=== PATIENT | female | born 1995 | race Caucasian/White ===

== ENCOUNTER 2017-10-13 21:10 | Emergency (ER) | payer OTHER ==
[~2017-10-13] VITALS: Ht 172.7 cm; Wt 81.2 kg
[2017-10-13 21:25] VITALS: TEMP 36.8; Ht 172.7 cm; Wt 81.2 kg
[2017-10-13] MEDS ORDERED: SODIUM CHLORIDE 0.9% 1000ML 1,000 ML IV ONE (22:15)
[2017-10-13 22:30] LABS: BASO % 0.3 %; BASO ABS # 0.03 K/uL (0-0.2); EOS % 1.8 %; EOS ABS # 0.17 K/uL (0-0.5); HEMATOCRIT 39.4 % (37-47); HEMOGLOBIN 13.2 g/dL (12.0-16.0); IG# 0.01 K/uL (0.00-0.02); LYMPH % 36.8 %; MEAN CELL VOLUME 86.2 fL (80-100); MEAN CORPUSCULAR HEMOGLOBIN 28.9 pg (25-34); MEAN CORPUSCULAR HGB CONC 33.5 g/dl (32-36); MEAN PLATELET VOLUME 10.1 fL (7.4-10.4); MONO ABS # 0.92 K/uL (0.11-0.59); NEUT ABS # 4.71 K/uL (1.4-6.5); PLATELET COUNT 286 K/uL (130-400); RED CELL DISTRIBUTION WIDTH CV 13.3 % (11.5-14.5); RED CELL DISTRIBUTION WIDTH SD 42.3 fL (36.4-46.3); WHITE BLOOD COUNT 9.24 K/uL (4.8-10.8)
[2017-10-13 22:47] LABS: ALBUMIN 4.1 gm/dl (3.4-5.0); CALCIUM 8.7 mg/dl (8.5-10.1); CREATININE 0.8 mg/dl (0.60-1.20); POTASSIUM 3.6 mmol/L (3.5-5.1)
[2017-10-13 22:50] LABS: TOTAL PROTEIN 7.9 gm/dl (6.4-8.2)
[2017-10-14 01:30] VITALS: BP 126/82
[2017-10-14 02:11] VITALS: PULSE 79; O2SAT 100
--- NOTE | 2017-10-14 03:10 | EMERGENCY ROOM VISIT NOTE ---
History First contact with patient: 21:51 Chief Complaint: VAGINAL BLEEDING Stated Complaint: NEWLY , DARK BLEEDING, CHEST PAIN History of Present Illness The patient is a 22 year old female who presents to the Emergency Room with complaints of vaginal bleeding that started today. The patient states that her last menstrual period was about 5 weeks ago. She took a home test 6 days ago that was positive. This would be her third . She had 2 uncomplicated spontaneous vaginal deliveries with her first 2 pregnancies. The patient is not having pain or cramping in the abdomen. She describes a small spots when wiping after using the bathroom initially, and now small spotting into her underwear. The patient has not had fever or chills. No significant chest pain or shortness of breath. The patient considers himself otherwise usually healthy. 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 She has not followed with [facility] yet for this . She rates her current discomfort as 0/10. Review of Systems More than 10 systems were reviewed and otherwise negative with the exception of history of present illness. Past Medical/Surgical History No chronic medical disease Family History No pertinent family history Social History Smoking Status: Never Smoker Housing Status: lives with significant other Occupation Status: employed Current/Historical Medications No Active Prescriptions or Reported Meds Physical Exam Vital Signs Date Time Temp Pulse Resp B/P (MAP) Pulse Ox O2 Delivery O2 Flow Rate FiO2 10/14/17 02:11 79 100 10/14/17 01:30 80 16 126/82 98 Room Air 10/13/17 23:41 66 18 116/81 100 Room Air 10/13/17 21:25 36.8 70 20 145/89 96 Room Air Physical Exam VITALS: Vitals are noted on the nurse's note and reviewed by myself. Vital signs stable. GENERAL: Well-developed, well-nourished, white female, who is in no acute distress and resting comfortably. Patient is cooperative with the examination. HEAD: Normocephalic atraumatic. MOUTH: Mucous membranes moist. Tonsils are not enlarged. Pharynx without erythema, blood, or exudate. Uvula midline. Airway patent. NECK: Supple without nuchal rigidity. No lymphadenopathy. No thyromegaly. Cervical spine is nontender. HEART: Regular rate and rhythm without murmurs gallops or rubs. LUNGS: Clear to auscultation bilaterally without wheezes, rales or rhonchi. No retractions or accessory muscle use. ABDOMEN: Positive normal bowel sounds x 4. Soft, nontender, without masses or organomegaly. No guarding or rebound tenderness. MUSCULOSKELETAL: No muscle atrophy, erythema, or edema noted. Full range of motion in all extremities. No tenderness to palpation. Medical Decision & Procedures ER Provider Diagnostic Interpretation: Preliminary Findings Only See Final Report For Complete Findings US OB 1st TRIMESTER: No prior. There is a tiny cystic focus within the uterus. No internal contents identified. Measures about 2.1 mm. May represent an early gestational sac. Right ovary contains a complex cyst measuring 16 mm. Query corpus luteal cyst. There is also an echogenic lesion with a hypoechoic center measuring 11 mm within the right ovary. Indeterminate. Query dermoid. Intraovarian ectopic considered unlikely and is very rare. There is some trace fluid within the endocervical canal and pelvic free fluid. Blood flow seen to the bilateral ovaries. Differential considerations include IUP too early to visualize, spontaneous and ectopic. Correlate with serial beta hCG and follow-up ultrasound, as indicated. Laboratory Results 10/13/17 22:10 Red Blood Count 4.57, Mean Corpuscular Volume 86.2, Mean Corpuscular Hemoglobin 28.9, Mean Corpuscular Hemoglobin Concent 33.5, Mean Platelet Volume 10.1, Neutrophils (%) (Auto) 51.0, Lymphocytes (%) (Auto) 36.8, Monocytes (%) (Auto) 10.0, Eosinophils (%) (Auto) 1.8, Basophils (%) (Auto) 0.3, Neutrophils # (Auto ) 4.71, Lymphocytes # (Auto) 3.40, Monocytes # (Auto) 0.92, Eosinophils # (Auto ) 0.17, Basophils # (Auto) 0.03 10/13/17 22:10 Test 10/13/17 22:10 White Blood Count 9.24 K/uL (4.8-10.8) Red Blood Count 4.57 M/uL (4.2-5.4) Hemoglobin 13.2 g/dL (12.0-16.0) Hematocrit 39.4 % (37-47) Mean Corpuscular Volume 86.2 fL (80-100) Mean Corpuscular Hemoglobin 28.9 pg (25-34) Mean Corpuscular Hemoglobin Concent 33.5 g/dl (32-36) Platelet Count 286 K/uL (130-400) Mean Platelet Volume 10.1 fL (7.4-10.4) Neutrophils (%) (Auto) 51.0 % Lymphocytes (%) (Auto) 36.8 % Monocytes (%) (Auto) 10.0 % Eosinophils (%) (Auto) 1.8 % Basophils (%) (Auto) 0.3 % Neutrophils # (Auto) 4.71 K/uL (1.4-6.5) Lymphocytes # (Auto) 3.40 K/uL (1.2-3.4) Monocytes # (Auto) 0.92 K/uL (0.11-0.59) Eosinophils # (Auto) 0.17 K/uL (0-0.5) Basophils # (Auto) 0.03 K/uL (0-0.2) RDW Standard Deviation 42.3 fL (36.4-46.3) RDW Coefficient of Variation 13.3 % (11.5-14.5) Immature Granulocyte % (Auto) 0.1 % Immature Granulocyte # (Auto) 0.01 K/uL (0.00-0.02) Anion Gap 5.0 mmol/L (3-11) Est Creatinine Clear Calc Drug Dose 122.3 ml/min Estimated GFR () 120.4 Estimated GFR (Non- 103.9 BUN/Creatinine Ratio 13.7 (10-20) Calcium Level 8.7 mg/dl (8.5-10.1) Total Bilirubin 0.6 mg/dl (0.2-1) Aspartate Amino Transf (AST/SGOT) 17 U/L (15-37) Alanine Aminotransferase (ALT/SGPT) 22 U/L (12-78) Alkaline Phosphatase 53 U/L (45-117) Total Protein 7.9 gm/dl (6.4-8.2) Albumin 4.1 gm/dl (3.4-5.0) Globulin 3.8 gm/dl (2.5-4.0) Albumin/Globulin Ratio 1.1 (0.9-2) Human Chorionic Gonadotropin, Quant 63 mIU/mL Medications Administered Medications (Trade) Dose Ordered Sig/German Route Start Time Stop Time Status Last Admin Dose Admin Sodium Chloride 1,000 ml @ 999 mls/hr Q1H1M ONCE IV 10/13/17 22:15 10/13/17 23:15 DC 10/13/17 22:15 999 MLS/HR ED Course Physical exam and history were performed. Nursing notes, EMR, and Medication List were personally reviewed. Patient appears to have small amounts of vaginal bleeding in the first trimester of . The patient does not appear toxic on examination. She does not have reports of pain, nor does she have reproducible tenderness on examination. IV access was established and labs were obtained. Patient was hydrated with normal saline. Ultrasound was ordered. The patient's blood work is as above and was reviewed. She does not have a significantly elevated white blood cell count, gross anemia, bandemia, or significant electrolyte imbalance. Her hCG quantitative is 60. Ultrasound returned as above and was reviewed. The case was discussed with my attending physician, Dr. Lopez, and with the on -call DRY[facility] FEEDER, Dr. Marvin. Clinically the patient does not appear to have an ectopic , and ultrasound findings could represent either a very early or inevitable . Dr. Marvin recommended the patient establish care with their office in 48 hours with repeat blood work. Dr. Marvin's office will attempt to contact the patient in the morning, and I will also have the patient try to schedule this appointment through their office. I spent a significant amount of time explaining results to the patient and family. She does appear comfortable with discharge home and understands that she may return to the ER with any new, worsening, or concerning symptoms. The chart was completed utilizing [employer] Speech Voice Recognition Software. Grammatical errors, random word insertions, pronoun errors, and incomplete sentences are an occasional consequence of this system due to software limitations, ambient noise, and hardware issues. Any formal questions or concerns about the content, text, or information contained within the body of this dictation should be directly addressed to the provider for clarification. . Medical Decision Differential diagnosis: Etiologies such as ectopic , dysfunction uterine bleeding, bleeding dyscrasia, trauma, infection, as well as others were entertained. Impression Primary Impression: First trimester bleeding Departure Information Dispostion Home / Self-Care Condition GOOD Prescriptions No Active Prescriptions or Reported Meds Referrals Erika Marvin M.D. Forms HOME CARE DOCUMENTATION FORM, Work Instructions, Additional Instructions: Patient was seen and evaluated today in the emergency department fo medical care. Return to work on 10/17/2017. Please excuse. IMPORTANT VISIT INFORMATION Patient Instructions My [facility] Additional Instructions You were seen and evaluated today on an emergency basis only. This is not a substitute for, or an effort to provide, complete comprehensive medical care. It is not possible to recognize and treat all injuries or illnesses in a single emergency department visit. For this reason it is recommended that you followup with [facility], Dr. Marvin's office, by telephone this morning when they open at 8am. Let the office know that we spoke with Dr. Marvin and she would like to see you on Thursday. Dr. Marvin would like you to have a repeat Beta HCG test performed Thursday morning before your appointment. The office will help facilitate this for you. Do not place anything into the vaginal vault until cleared by [facility]. You are welcome to return to the emergency department anytime with new, worsening, or concerning symptoms. Work Instructions Additional Work Instructions: Patient was seen and evaluated today in the emergency department for medical care. Return to work on 10/17/2017. Please excuse.
--- NOTE | 2017-10-14 07:14 | DIAGNOSTIC IMAGING REPORT ---
TRANSVAGINAL CLINICAL HISTORY: 22 years-old Female presenting with vag bleed in 5 or 6 week , last menstrual period 09/07/2017, , beta-hCG 63, bleeding for 6 hours, menstrual gestational age 5 weeks 1 day. TECHNIQUE: Real-time grayscale and M-mode Doppler ultrasound imaging of the pelvis was performed first using a transabdominal probe and subsequently transvaginal for better characterization. Color and spectral Doppler ultrasound imaging of the adnexa was also performed. COMPARISON: None. FINDINGS: Uterus: Possible gestational sac noted in the endometrial cavity. Endometrium is thickened likely indicating a decidual reaction. There is a 2 mm hypoechogenic/anechoic focus within the fundal endometrium, which may represent an early gestational sac. Anteverted uterus. Cervix contains trace fluid. Right adnexum: Right ovary likely contains a corpus luteum. Additionally there is a 1.1 x 1.1 x 1.0 cm heterogeneously hyperechogenic lesion within the right ovary. Right ovary measures 3.7 x 2.1 x 2.2 cm. Normal color Doppler flow and arterial and venous waveforms within the ovarian parenchyma. Left adnexum: Left ovary normal. Left ovary measures 2.6 x 2.0 x 2.0 cm. Normal color Doppler flow and arterial and venous waveforms within the ovarian parenchyma. Other: Trace free fluid, likely physiologic. IMPRESSION: 1. Possible early gestational sac within the endometrial cavity. These findings may represent an early intrauterine . Continued clinical and imaging follow-up recommended. Beta hCG trending to be considered to exclude the possibility of miscarriage. 2. Trace free fluid in the cervix, which could represent blood products. 3. No ovarian torsion. 4. Suspected 1 cm right ovarian dermoid. The report will be called/faxed according to standard departmental protocol. Electronically signed by: Jamie Celis M.D. 10/14/2017 7:13 AM Dictated Date/Time: 10/14/2017 6:51 AM
== END 2017-10-14 02:10 | disposition home or self-care (01) ==
LOC: C.EDB 21:12
DX: O20.9 Hemorrhage in early pregnancy, unspecified (principal); Z3A.00 Weeks of gestation of pregnancy not specified

== ENCOUNTER 2017-10-14 14:07 | Emergency (ER) | payer OTHER ==
[~2017-10-14] VITALS: Ht 172.7 cm; Wt 79.9 kg
[2017-10-14 14:09] VITALS: TEMP 37; Ht 172.7 cm; Wt 79.9 kg
[2017-10-14] MEDS ORDERED: SODIUM CHLORIDE 0.9% 1000ML 1,000 ML IV STA (14:29)
[2017-10-14 15:06] LABS: BASO % 0.4 %; BASO ABS # 0.03 K/uL (0-0.2); EOS % 2.8 %; EOS ABS # 0.19 K/uL (0-0.5); HEMATOCRIT 40.3 % (37-47); HEMOGLOBIN 13.7 g/dL (12.0-16.0); IG# 0.01 K/uL (0.00-0.02); LYMPH % 30.7 %; MEAN CELL VOLUME 86.1 fL (80-100); MEAN CORPUSCULAR HEMOGLOBIN 29.3 pg (25-34); MEAN PLATELET VOLUME 10.1 fL (7.4-10.4); MONO % 12.7 %; MONO ABS # 0.87 K/uL (0.11-0.59); NEUT % 53.3 %; NEUT ABS # 3.65 K/uL (1.4-6.5); PLATELET COUNT 267 K/uL (130-400); RED CELL DISTRIBUTION WIDTH CV 13.3 % (11.5-14.5); RED CELL DISTRIBUTION WIDTH SD 42.1 fL (36.4-46.3); WHITE BLOOD COUNT 6.85 K/uL (4.8-10.8)
[2017-10-14 15:23] LABS: ALBUMIN 3.7 gm/dl (3.4-5.0); CALCIUM 8.6 mg/dl (8.5-10.1); CREATININE 0.63 mg/dl (0.60-1.20); POTASSIUM 3.6 mmol/L (3.5-5.1); TOTAL PROTEIN 7.2 gm/dl (6.4-8.2)
--- NOTE | 2017-10-14 15:31 | EMERGENCY ROOM VISIT NOTE ---
History First contact with patient: 14:19 Chief Complaint: ED VAG BLEEDING Stated Complaint: EXCESSIVE BLEEDING History of Present Illness The patient is a 22 year old female who presents to the Emergency Room with complaints of heavy vaginal bleeding. The patient was seen here last night due to some vaginal spotting. She was told that she was likely having a miscarriage. She states that she left last night at approximately 1 AM and her bleeding has become increasingly heavy since then. She reports that she is now soaking through 10 pads per hour and passing large blood clots. She reports cramping pelvic pain and rates the discomfort a 4/10. She was not having pain yesterday when she was seen here. She has had 2 previous pregnancies, both of which ended with normal deliveries. She has never had a miscarriage or ectopic . Her blood type is A+. She reports feeling slightly lightheaded. Review of Systems A complete 10 point review of systems was reviewed with the patient with pertinent positives and negatives as per history of present illness. All else were negative. Past Medical/Surgical History Medical Problems: (1) No significant active problems Social History Smoking Status: Never Smoker Alcohol Use: none Marital Status: in relationship Housing Status: lives with significant other Occupation Status: employed Current/Historical Medications No Active Prescriptions or Reported Meds Physical Exam Vital Signs Date Time Temp Pulse Resp B/P (MAP) Pulse Ox O2 Delivery O2 Flow Rate FiO2 10/14/17 16:07 70 12 119/80 96 10/14/17 14:09 37.0 79 20 142/90 100 Room Air Physical Exam VITALS: Vitals are noted on the nurse's note and reviewed by myself. Vital signs stable. GENERAL: This is a 22-year-old female, in no acute distress, nondiaphoretic, well-developed well-nourished. SKIN: The skin was without rashes. MOUTH: Mucous membranes moist. HEART: Regular rate and rhythm without murmurs gallops or rubs. LUNGS: Clear to auscultation bilaterally without wheezes, rales or rhonchi. ABDOMEN: Positive bowel sounds x 4. Soft, nontender to palpation. PELVIC: Cervical os is open. There is a moderate amount of dark red blood from the os. NEURO: Patient was alert and oriented to person place and time. Medical Decision & Procedures Laboratory Results 10/14/17 14:44 Red Blood Count 4.68, Mean Corpuscular Volume 86.1, Mean Corpuscular Hemoglobin 29.3, Mean Corpuscular Hemoglobin Concent 34.0, Mean Platelet Volume 10.1, Neutrophils (%) (Auto) 53.3, Lymphocytes (%) (Auto) 30.7, Monocytes (%) (Auto) 12.7, Eosinophils (%) (Auto) 2.8, Basophils (%) (Auto) 0.4, Neutrophils # (Auto ) 3.65, Lymphocytes # (Auto) 2.10, Monocytes # (Auto) 0.87, Eosinophils # (Auto ) 0.19, Basophils # (Auto) 0.03 10/14/17 14:44 Test 10/14/17 14:44 White Blood Count 6.85 K/uL (4.8-10.8) Red Blood Count 4.68 M/uL (4.2-5.4) Hemoglobin 13.7 g/dL (12.0-16.0) Hematocrit 40.3 % (37-47) Mean Corpuscular Volume 86.1 fL (80-100) Mean Corpuscular Hemoglobin 29.3 pg (25-34) Mean Corpuscular Hemoglobin Concent 34.0 g/dl (32-36) Platelet Count 267 K/uL (130-400) Mean Platelet Volume 10.1 fL (7.4-10.4) Neutrophils (%) (Auto) 53.3 % Lymphocytes (%) (Auto) 30.7 % Monocytes (%) (Auto) 12.7 % Eosinophils (%) (Auto) 2.8 % Basophils (%) (Auto) 0.4 % Neutrophils # (Auto) 3.65 K/uL (1.4-6.5) Lymphocytes # (Auto) 2.10 K/uL (1.2-3.4) Monocytes # (Auto) 0.87 K/uL (0.11-0.59) Eosinophils # (Auto) 0.19 K/uL (0-0.5) Basophils # (Auto) 0.03 K/uL (0-0.2) RDW Standard Deviation 42.1 fL (36.4-46.3) RDW Coefficient of Variation 13.3 % (11.5-14.5) Immature Granulocyte % (Auto) 0.1 % Immature Granulocyte # (Auto) 0.01 K/uL (0.00-0.02) Anion Gap 6.0 mmol/L (3-11) Est Creatinine Clear Calc Drug Dose 154.1 ml/min Estimated GFR () 146.5 Estimated GFR (Non- 126.4 BUN/Creatinine Ratio 12.3 (10-20) Calcium Level 8.6 mg/dl (8.5-10.1) Total Bilirubin 1.4 mg/dl (0.2-1) Aspartate Amino Transf (AST/SGOT) 16 U/L (15-37) Alanine Aminotransferase (ALT/SGPT) 20 U/L (12-78) Alkaline Phosphatase 53 U/L (45-117) Total Protein 7.2 gm/dl (6.4-8.2) Albumin 3.7 gm/dl (3.4-5.0) Globulin 3.5 gm/dl (2.5-4.0) Albumin/Globulin Ratio 1.1 (0.9-2) Human Chorionic Gonadotropin, Quant 45 mIU/mL Medications Administered Medications (Trade) Dose Ordered Sig/German Route Start Time Stop Time Status Last Admin Dose Admin Sodium Chloride 1,000 ml @ 999 mls/hr Q1H1M STAT IV 10/14/17 14:29 10/14/17 15:29 DC 10/14/17 14:55 999 MLS/HR Medical Decision Differential diagnosis includes spontaneous , threatened , subchorionic hematoma, ectopic , implantation bleeding, placenta previa , placental abruption, malignancy/mass, bleeding disorder, among others. The patient is a 22-year-old female who presents today complaining of increasing vaginal bleeding. Patient was seen here last night and had an ultrasound at that time which did show a small intrauterine gestational sac. She reports heavier bleeding today. On exam she does have moderate bleeding from the cervical os. Labs revealed no leukocytosis. Stable H&H, unchanged from her visit last night. Quantitative beta-hCG has decreased from 63-45. This does seem to be consistent with a miscarriage. Patient is blood type a positive and will not require RhoGam. The case was discussed with Dr. Neumann from [facility]. He will set up close follow-up for the patient. Findings were discussed with the patient and her boyfriend's mother at length. They verbalized understanding of this treatment plan. Based on the patient's presentation and work up, I feel the patient is stable for outpatient treatment. The patient was educated to return to the emergency department for any worsening of their current condition or new/concerning symptoms. She will follow up with [facility] [facility]. Medication Reconcilliation Current Medication List: was personally reviewed by me Blood Pressure Screening Patient's blood pressure: Normal blood pressure Impression Primary Impression: Miscarriage Departure Information Dispostion Home / Self-Care Condition GOOD Prescriptions No Active Prescriptions or Reported Meds Referrals No Doctor, Assigned (PCP) Amanda Neumann M.D. Patient Instructions My [facility] Additional Instructions For pain control, you can use the following [id number] medicines (if >12 yo): - Regular strength (325mg/tab) Tylenol (acetaminophen) 2 tabs every 4-6 hours as needed. Do not exceed 12 tablets in a 24 hour period. Avoid taking more than 4 grams (4000 mg) of Tylenol per day. This includes any other sources of acetaminophen you may take on a regular basis. - Regular strength (200 mg/tab) Advil (ibuprofen) 1-2 tabs every 4-6 hours as needed. Do not exceed a dose of 3200 mg per day. Rest and drink plenty of fluids. Rest for the next few days. Light activity is okay. [facility] CR[facility] OPERATOR should be contacting you regarding an appointment for follow-up. If you do not hear from them by tomorrow, I recommend calling the office to check on the appointment. Return to the emergency department for worsening bleeding, dizziness/passing out , worsening pain, vomiting or other new/concerning symptoms.
[2017-10-14 16:07] VITALS: BP 119/80; PULSE 70; O2SAT 96
== END 2017-10-14 16:12 | disposition home or self-care (01) ==
LOC: C.EDB 14:08
DX: O03.9 Complete or unspecified spontaneous abortion without complication (principal)

== ENCOUNTER → 2017-10-22 | Outpatient (CLI) | payer OTHER | END | disposition home or self-care (01) | LOC: C.LAB1850 09:39 | PROVIDERS: ATTEND Obstetrics & Gynecology | DX: O03.9 Complete or unspecified spontaneous abortion without complication (principal) ==